=== PATIENT | male | born 1965 | race Two or more races ===

== ENCOUNTER 2018-10-25 11:16 | Emergency (ER) | payer OTHER ==
[2018-10-25] MEDS ORDERED: fentaNYL 100 MCG/2 ML INJ IVP ONE ×2 (11:30→12:08)
[2018-10-25] MEDS ORDERED: NS 1,000 ML IV ONE (11:30)
[2018-10-25] MEDS ORDERED: KETOROLAC 15 MG/1 ML SDV IVP ONE (11:32)
[2018-10-25] MEDS ORDERED: ONDANSETRON 4 MG/2 ML VIAL ONE (12:01)
[2018-10-25] MEDS ORDERED: ONDANSETRON 4 MG/2 ML VIAL IVP ONE (12:03)
--- NOTE | 2018-10-25 12:45 | EDPHY ---
H & P Time Seen by Provider: 10/25/18 11:23 HPI/ROS: CHIEF COMPLAINT: Abdominal pain HISTORY OF PRESENT ILLNESS: Patient states that approximately 1 hr prior to arrival he had a sudden onset of pain in the right lower quadrant of his abdomen. He states that the pain was intense and radiated to the groin. He had a little bit of nausea but no vomiting. He states that this is similar to pain he had 5 years ago when he was diagnosed with a kidney stone at an outside facility. He states he has had a little bit of discomfort with urination just since the pain started but denies any problems yesterday. He has had no fevers. He denies any trauma. Denies pain to scrotum. REVIEW OF SYSTEMS: Constitutional: No fever, no chills. Eyes: No discharge. ENT: No sore throat. Cardiovascular: No chest pain, no palpitations. Respiratory: No cough, no shortness of breath. Gastrointestinal: Per HPI Genitourinary: Per HPI Musculoskeletal: No back pain. Skin: No rashes. Neurological: No headache. General Appearance: Alert, moderate distress Eyes: Pupils equal and round no pallor or injection. ENT, Mouth: Mucous membranes moist. Respiratory: There are no retractions, lungs are clear to auscultation. Cardiovascular: Regular rate and rhythm. Gastrointestinal: Abdomen is soft and nontender, no masses, bowel sounds normal. Some right CVA tenderness. Neurological: Awake, alert, no focal deficits. Skin: Warm and dry, no rashes. Musculoskeletal: Neck is supple nontender. Extremities are symmetrical, full range of motion, no edema. Psychiatric: Patient is oriented X 3, there is no agitation. Medical/surgical history: Kidney stone, tonsillectomy Social history: Nonsmoker Smoking Status: Light smoker Constitutional: Initial Vital Signs Temperature (C) 36.6 C 10/25/18 11:22 Heart Rate 81 10/25/18 11:22 Respiratory Rate 16 10/25/18 11:22 Blood Pressure 131/83 H 10/25/18 11:22 O2 Sat (%) 100 10/25/18 11:22 O2 Delivery Mode Room Air Allergies/Adverse Reactions: No Known Allergies Allergy (Verified 10/25/18 11:22) Home Medications: Medication Instructions Recorded No Medications [NO HOME 1 ea [facility] [place] 12/14/11 MEDICATIONS] Hydrocodone/Acetaminophen [[place] 1 each PO Q6 PRN 2 Days #6 tablet 10/25/18 5-325 Tablet] Tamsulosin HCl [Flomax 0.4 MG (*)] 0.4 mg PO DAILY #2 cap 10/25/18 Medical Decision Making ED Course/Re-evaluation: 1:00 p.m. Re-evaluation after CT scan, patient states feeling much better pain essentially gone. Differential Diagnosis: Differential diagnosis includes but is not limited to renal stone, pyelonephritis, appendicitis, hernia, testicular torsion. After evaluation including CT scanning patient found have a 2 mm stone in the right UVJ with moderate hydro. Stones small and will advance and will likely pass without intervention. Discussed likely course with patient and his . Referred to urology if symptoms do not improve significantly over the next few days. Patient understands follow-up and return precautions. Stable for discharge. - Data Points Medications Given: Discontinued Medications Hydrocodone Bitart/Acetaminophen ([place] 5/325) 1 tab PO EDNOW ONE Stop: 10/25/18 13:33 Last Admin: 10/25/18 13:40 Dose: 1 tab Fentanyl (Sublimaze) 50 mcg IVP EDNOW ONE Stop: 10/25/18 11:31 Last Admin: 10/25/18 11:47 Dose: 50 mcg Fentanyl (Sublimaze) 50 mcg IVP EDNOW ONE Stop: 10/25/18 12:09 Last Admin: 10/25/18 12:09 Dose: 50 mcg Sodium Chloride (Ns) 1,000 mls @ 0 mls/hr IV EDNOW ONE; Wide Open PRN Reason: Protocol Stop: 10/25/18 11:31 Last Admin: 10/25/18 11:45 Dose: 1,000 mls Ketorolac Tromethamine (Toradol) 15 mg IVP EDNOW ONE Stop: 10/25/18 11:33 Last Admin: 10/25/18 11:46 Dose: 15 mg Ondansetron HCl (Zofran) 4 mg IVP EDNOW ONE Stop: 10/25/18 12:04 Last Admin: 10/25/18 12:08 Dose: 4 mg Tamsulosin HCl (Flomax) 0.4 mg PO EDNOW ONE Stop: 10/25/18 13:33 Last Admin: 10/25/18 13:41 Dose: 0.4 mg Point of Care Test Results: CBC CBC Collection Date 10/25/18 CBC Collection Time 11:42 WBC 10.8 RBC 5.28 HGB 16.6 HCT 47.1 PLT 247 Neut # 5.5 Neut 51.1 LYMPH # 4.7 LYMPH 43.1 Other WBC # 0.6 Other WBC 5.8 MCV 89.2 Chemistry 10/25/18 12:00 POC Sodium 142 mEq/L mEq/L (135-145) POC Potassium 4.5 mEq/L mEq/L (3.3-5.0) POC Chloride 105.0 mEq/L mEq/L (97-110) POC Total CO2 27 mEq/L mEq/L (22-31) POC BUN 15 mg/dL mg/dL (7-23) POC Creatinine 1.0 mg/dL mg/dL (0.7-1.3) POC Glucose 94 mg/dL mg/dL (70-100) POC Calcium 9.8 mg/dL mg/dL (8.5-10.4) Urine Dip Collection Date 10/25/18 Collection Time 13:40 Specific [place] (1.002-1.030) 1.020 PH (5.0-7.5) 7.0 Leukocytes (Negative) Negative Nitrites (Negative) Negative Protein (Negative) Negative Glucose (Negative) Negative Ketones (Negative) 1+ Urobilnogen (0.2-1.0 EU) 0.2 Bilirubin (Negative) Negative Blood (Negative) 2+ Departure - Departure Disposition: Home, Routine, Self-Care Clinical Impression: Renal colic on right side Condition: Fair Instructions: Hydrocodone/Acetaminophen (By mouth), Tamsulosin (By mouth), Kidney Stones (ED) Additional Instructions: Use pain medication as prescribed. Take the tamsulosin once a day for 2 more days. You had a dose in the emergency department today. If you're still having pain by Saturday call urologist and make an appointment for follow-up. Make sure you drink plenty of fluids. Referrals: LINDSAY ARNDT [Other] - As per Instructions Mag Ledesma MD [Medical Doctor] - As per Instructions Prescriptions: Hydrocodone/Acetaminophen [[place] 5-325 Tablet] 1 each PO Q6 PRN 2 Days #6 tablet PRN Reason: Pain, Breakthrough Tamsulosin HCl [Flomax 0.4 MG (*)] 0.4 mg PO DAILY #2 cap
[2018-10-25] MEDS ORDERED: TAMSULOSIN HCL 0.4 MG CAP PO ONE (13:32)
[2018-10-25] MEDS ORDERED: HYDROCODONE/APAP 5/325 TAB PO ONE (13:32)
[2018-10-25 14:48] VITALS: BP 138/82
== END 2018-10-25 14:46 | disposition home or self-care (01) ==
LOC: CED 11:16
DX: N23 Unspecified renal colic (principal); E86.9 Volume depletion, unspecified
CPT/HCPCS: 74176-PO; 80048-ER; 96361-ER; 96374-ER; 96375-ER; J1885; J2405; J3010

== ENCOUNTER 2018-12-31 15:29 | Observation (INO) | payer OTHER ==
[2018-12-31] MEDS ORDERED: ASPIRIN 81 MG CHEWABLE TAB PO ONE (15:47)
--- NOTE | 2018-12-31 15:55 | EDPHY ---
H & P Time Seen by Provider: 12/31/18 15:42 HPI/ROS: Chief complaint. Chest pain HPI. Patient is a 53-year-old male presents emergency department with chest discomfort that began at 1:30 a.m.. Was sharp and lasted 2 min. He took ibuprofen with some relief. It then has been present throughout the day today. It is central in his chest and he describes as burning as well as pressure. There is no radiation to neck back or arm. He notes slight shortness of breath with exertion. No increased discussed with exertion. Decreased pain with deep breathing. No fever cough. No similar symptoms previously. No history of diabetes or hypertension. No unusual leg pain or swelling ROS 10 systems were reviewed and negative with the exception of the elements mentioned in the history of present illness Past Medical/Surgical History: TB, kidney stones, tonsillectomy Family history grandfather had coronary artery disease Social History: , daily smoker, no alcohol Smoking Status: Light smoker Physical Exam: General Appearance: Alert pleasant well-developed male mild distress vital signs are stable Eyes: Pupils equal and round no pallor or injection. ENT, Mouth: Mucous membranes are moist. Respiratory: There are no retractions, lungs are clear to auscultation. Cardiovascular: Regular rate and rhythm. Gastrointestinal: Abdomen is soft and nontender, no masses, bowel sounds normal. Neurological: Awake and alert, sensory and motor exams grossly normal. Skin: Warm and dry, no rashes. Musculoskeletal: Neck is supple nontender. Extremities symmetrical, full range of motion. Psychiatric: Patient is oriented X 3, there is no agitation. Constitutional: Initial Vital Signs Temperature (C) 36.7 C 12/31/18 15:36 Heart Rate 68 12/31/18 15:36 Respiratory Rate 18 12/31/18 15:36 Blood Pressure 136/92 H 12/31/18 15:36 O2 Sat (%) 97 12/31/18 15:36 O2 Delivery Mode Room Air Allergies/Adverse Reactions: No Known Allergies Allergy (Verified 12/31/18 15:36) Home Medications: Medication Instructions Recorded No Medications [NO HOME 1 ea [facility] [place] MEDICATIONS] Medical Decision Making - Diagnostics EKG Interpretation: EKG interpreted by me shows normal sinus rhythm normal interval and axis. QRS is normal slight ST elevation lead 2 which appears to be J-point elevation. Otherwise no significant ST elevation or depression. No arrhythmia. The rate is 71. Repeat EKG 2 hr later interpreted by me shows normal sinus rhythm normal interval and axis. QRS is normal there is no significant ST elevation or depression though slight again ST elevation in V2 no arrhythmia. Rate 61 Imaging Results: Imaging Impressions Chest X-Ray 12/31/18 16:06 Impression: Mild peribronchial thickening which can be seen with airways disease /bronchitis. Procedures: IV normal saline, monitor. Aspirin in the ED Toradol IV GI cocktail ED Course/Re-evaluation: Re-evaluation 5:45 p.m. Patient's discomfort is unchanged and the same. It continues No improvement with GI cocktail or with IV Toradol Patient's arrives and says the patient has had this discomfort before and the cause is unclear. The patient has never had a cardiac workup. The patient , his , and I discussed imaging lab EKG findings. We discussed treatment plan including recommendation for admission for further cardiac evaluation. They expressed understanding and agreement.. We discussed transfer by ambulance but for financial reasons they would like to go by private vehicle. Risks and benefits of this are discussed with the patient and his . I consulted and discussed the case with Dr. Simpson, hospitalist, who agrees to the admission Differential Diagnosis: Patient's heart score-- History low suspicion--0 EKG nonspecific repolarization disturbance--1 Age--1 Risk factors--smoking--1 Troponin x2 is normal--0 Total is 3 I have considered acute coronary syndrome, pneumonia, GERD - Data Points Laboratory Results: 12/31/18 12/31/18 12/31/18 17:31 15:54 15:52 POC Sodium 144 mEq/L mEq/L (135-145) POC Potassium 3.7 mEq/L mEq/L (3.3-5.0) POC Chloride 106.0 mEq/L mEq/L (97-110) POC Total CO2 27 mEq/L mEq/L (22-31) POC BUN 11 mg/dL mg/dL (7-23) POC Creatinine 0.9 mg/dL mg/dL (0.7-1.3) POC Glucose 105 mg/dL H mg/dL (70-100) POC Calcium 9.3 mg/dL mg/dL (8.5-10.4) POC Total Bilirubin 0.7 mg/dL mg/dL (0.1-1.4) POC AST 21 IU/L IU/L (17-59) POC ALT 19 IU/L L IU/L (21-72) POC Alk Phosphatase 91 IU/L IU/L (38-126) POC Troponin I 0.00 ng/mL ng/mL 0.01 ng/mL ng/mL (0.00-0.08) (0.00-0.08) POC Total Protein 6.6 g/dL g/dL (6.3-8.2) POC Albumin 3.4 g/dL L g/dL (3.5-5.0) Medications Given: Discontinued Medications Al Hydroxide/Mg Hydroxide (Maalox Susp) 30 ml PO ONCE ONE Stop: 12/31/18 17:47 Last Admin: 12/31/18 17:52 Dose: 30 ml Aspirin (Aspirin) 324 mg PO EDNOW ONE Stop: 12/31/18 15:48 Last Admin: 12/31/18 15:50 Dose: 324 mg Ketorolac Tromethamine (Toradol) 30 mg IVP EDNOW ONE Stop: 12/31/18 17:13 Last Admin: 12/31/18 17:16 Dose: 30 mg Lidocaine (Lidocaine 2% Viscous) 15 ml PO ONCE ONE Stop: 12/31/18 17:47 Last Admin: 12/31/18 17:52 Dose: 15 ml Point of Care Test Results: CBC CBC Collection Date 12/31/18 CBC Collection Time 15:45 WBC 7.21 RBC 5.24 HGB 16.1 HCT 46.5 PLT 239 Neut # 3.95 Neut 54.7 LYMPH # 2.6 LYMPH 36.1 MCV 88.7 Chemistry 12/31/18 12/31/18 12/31/18 17:31 15:54 15:52 POC Sodium 144 mEq/L mEq/L (135-145) POC Potassium 3.7 mEq/L mEq/L (3.3-5.0) POC Chloride 106.0 mEq/L mEq/L (97-110) POC Total CO2 27 mEq/L mEq/L (22-31) POC BUN 11 mg/dL mg/dL (7-23) POC Creatinine 0.9 mg/dL mg/dL (0.7-1.3) POC Glucose 105 mg/dL H mg/dL (70-100) POC Calcium 9.3 mg/dL mg/dL (8.5-10.4) POC Total Bilirubin 0.7 mg/dL mg/dL (0.1-1.4) POC AST 21 IU/L IU/L (17-59) POC ALT 19 IU/L L IU/L (21-72) POC Alk Phosphatase 91 IU/L IU/L (38-126) POC Troponin I 0.00 ng/mL ng/mL 0.01 ng/mL ng/mL (0.00-0.08) (0.00-0.08) POC Total Protein 6.6 g/dL g/dL (6.3-8.2) POC Albumin 3.4 g/dL L g/dL (3.5-5.0) D-Dimer D-Dimer Collection Date 12/31/18 D-Dimer Collection Time 15:45 D-Dimer (ng/ml) <100 Departure - Departure Disposition: [facility] Inpatient Acute Clinical Impression: Chest pain Qualifiers: Chest pain type: unspecified Qualified Code(s): R07.9 - Chest pain, unspecified Condition: Fair
[2018-12-31] MEDS ORDERED: KETOROLAC 30 MG/1 ML SDV IVP ONE (17:12)
[2018-12-31] MEDS ORDERED: MAG HYDROX/AL HYDROX/SIMETH 30 ML UDCUP PO ONE (17:46)
[2018-12-31] MEDS ORDERED: LIDOCAINE 2% VISCOUS 15 ML UDCUP PO ONE (17:46)
--- NOTE | 2018-12-31 18:26 | CPEKG ---
Test Reason : OPEN Blood Pressure : / mmHG Vent. Rate : 061 BPM Atrial Rate : 062 BPM P-R Int : 148 ms QRS Dur : 080 ms QT Int : 401 ms P-R-T Axes : 064 074 059 degrees QTc Int : 404 ms Sinus rhythm Abnormal R-wave progression, early transition ST elevation, consider anterior injury Confirmed by Stefan Mercedes ([id number]) on 12/31/2018 6:25:46 PM Referred By: STEFAN MERCEDES Confirmed By:Stefan Mercedes
--- NOTE | 2018-12-31 18:26 | CPEKG ---
Test Reason : OPEN Blood Pressure : / mmHG Vent. Rate : 071 BPM Atrial Rate : 071 BPM P-R Int : 137 ms QRS Dur : 081 ms QT Int : 381 ms P-R-T Axes : 078 079 061 degrees QTc Int : 414 ms Sinus rhythm Abnormal R-wave progression, early transition Minimal ST elevation, anterior leads Confirmed by Adair Mercedes ([id number]) on 12/31/2018 6:26:02 PM Referred By: PHYSICIAN ED Confirmed By:Adair Mercedes
--- NOTE | 2018-12-31 22:03 | PDGENHP ---
History and Physical - Chief Complaint chest pain - History of Present Illness Patient is a 53-year-old male with no past medical history presented to the emergency room with complaints of chest pain. Onset of pain was at 1:00 a.m. In the morning. Patient says he got up, had a drink of water and then after that developed some midsternal chest pain. Pain was a sharp pain located in his mid sternum, nonradiating. Nothing seemed to make it better or worse. His noticed that it did seem to be associated with a mild cough. Pain persisted into today and that is why in ultimately presented the emergency room. Pain has diminished substantially at this point. He denied any nausea vomiting sweatiness shortness of breath or other symptoms. History Information - Allergies/Home Medication List Allergies/Adverse Reactions: No Known Allergies Allergy (Verified 12/31/18 15:36) Home Medications: Ibuprofen [Motrin (*)] 800 mg PO DAILY PRN 12/31/18 [Last Taken 12/31/18 01:30] I have personally reviewed and updated: family history, medical history, social history, surgical history - Past Medical History no pertinent PMH Additional medical history: kidney stones - Surgical History Reports: no pertinent surgical hx - Family History Positive for: non-pertinent Additional family history: Said his dad had a big heart - Social History Smoking Status: Light smoker Tobacco Use: Cigarettes Alcohol Use: Occasionally Review of Systems Review of Systems: ROS: 10pt was reviewed & negative except for what was stated in HPI & below Physical Exam Physical Exam: Temp Pulse Resp BP Pulse Ox 36.4 C 73 17 128/75 H 96 12/31/18 21:19 12/31/18 21:19 12/31/18 21:19 12/31/18 21:19 12/31/18 21:19 Constitutional: no apparent distress, appears nourished, not in pain Eyes: PERRL, anicteric sclera, EOMI Ears, Nose, Mouth, Throat: moist mucous membranes, hearing normal, ears appear normal, no oral mucosal ulcers Cardiovascular: regular rate and rhythym, no murmur, rub, or gallop, No edema Respiratory: no respiratory distress, no rales or rhonchi, clear to auscultation Gastrointestinal: normoactive bowel sounds, soft, non-tender abdomen, no palpable masses Genitourinary: no bladder fullness, no bladder tenderness Skin: warm, normal color, no rashes or abrasions, no fluctuance, no induration, No mottled Musculoskeletal: full muscle strength, no muscle tenderness, normal joint ROM, no joint effusions Psychiatric: interacting appropriately, not anxious, not encephalopathic, thought process linear Lymph, Heme, Immunologic: no cervical LAD, no supraclavicular LAD Lab Data & Imaging Review POC Sodium 144 mEq/L (135-145) 12/31/18 15:54 POC Potassium 3.7 mEq/L (3.3-5.0) 12/31/18 15:54 POC Chloride 106.0 mEq/L (97-110) 12/31/18 15:54 POC Total CO2 27 mEq/L (22-31) 12/31/18 15:54 POC BUN 11 mg/dL (7-23) 12/31/18 15:54 POC Creatinine 0.9 mg/dL (0.7-1.3) 12/31/18 15:54 POC Glucose 105 mg/dL (70-100) H 12/31/18 15:54 POC Calcium 9.3 mg/dL (8.5-10.4) 12/31/18 15:54 POC Total Bilirubin 0.7 mg/dL (0.1-1.4) 12/31/18 15:54 POC AST 21 IU/L (17-59) 12/31/18 15:54 POC ALT 19 IU/L (21-72) L 12/31/18 15:54 POC Alk Phosphatase 91 IU/L (38-126) 12/31/18 15:54 POC Troponin I 0.00 ng/mL (0.00-0.08) 12/31/18 17:31 POC Total Protein 6.6 g/dL (6.3-8.2) 12/31/18 15:54 POC Albumin 3.4 g/dL (3.5-5.0) L 12/31/18 15:54 Assessment & Plan Assessment: 53-year-old male with no past medical history admitted with chest pain Chest pain (Acute)- his heart score is 3 for age, smoking and EKG abnormalities. Chest pain seems to have resolved. EKG with what appears to be J-point elevation in V2. Initial troponin negative. -cycle troponin -he has already been given a full-dose aspirin -lipid panel -stress test in the morning assuming negative troponins -chest x-ray with possible bronchitis Tobacco abuse- counseled on cessation. Prophylaxis- SCDs and Lovenox Fluids- saline Electrolytes- within normal limits Nutrition- cardiac diet Cor- full Dispo- observation for chest pain rule out
[2018-12-31] MEDS ORDERED: ACETAMINOPHEN 325 MG TAB PO PRN (22:19)
[2018-12-31] MEDS ORDERED: ONDANSETRON DISINTEGRATING 4 MG TAB PO PRN (22:19)
[2018-12-31] MEDS ORDERED: ONDANSETRON 4 MG/2 ML VIAL IVP PRN (22:19)
[2018-12-31] MEDS ORDERED: NS 1,000 ML IV SCH (22:30)
[2019-01-01 05:43] LABS: PLATELET COUNT 218 10^3/uL (150-400)
[2019-01-01 05:54] LABS: INR 1.08 (0.83-1.16); PROTIME(PATIENT) 13.6 SEC (12.0-15.0)
[2019-01-01] MEDS ORDERED: PNEUMOCOCCAL 0.5ML VACCINE VIAL (PNEUMOVAX 23) IM ONE (08:53)
[2019-01-01] MEDS ORDERED: ENOXAPARIN 40 MG/0.4 ML SYR SC SCH (09:00)
[2019-01-01 11:18] VITALS: BP 119/74
--- NOTE | 2019-01-01 11:36 | CPR ---
[f rep st] NONINVASIVE CARDIAC PROCEDURE REPORT REPORT TITLE: Treadmill stress test REASON FOR TEST: 1. Chest discomfort. 2. History of gastroesophageal reflux disease. Resting EKG shows a regular sinus rhythm with a ventricular rate of 65, T-wave inversion in aVL. No ectopy noted. Blood pressure 114/67, oxygen saturation 97 %, heart rate 65.He is asymptomatic. TREADMILL PORTION: He exercised according to the Jermaine protocol for a total of 9 minutes. He did reach his maximal heart rate with no ectopy or symptoms. Blood pressure peaked at 164/74, peak heart rate 153, peak MET level 10.2. He remained asymptomatic throughout the test. RECOVERY: He spontaneously recovered. His heart rate and blood pressure returned to baseline. This is a normal treadmill stress test. Supervising physician: Colin Resendiz. /[id number]/MODL MTDD
[2019-01-01] MEDS ORDERED: ALBUTEROL 60 PUFFS/8 GM MDI IH SCH ×2 (12:00→14:00)
--- NOTE | 2019-01-01 12:32 | CPEKG ---
Test Reason : OPEN Blood Pressure : / mmHG Vent. Rate : 062 BPM Atrial Rate : 061 BPM P-R Int : 148 ms QRS Dur : 080 ms QT Int : 398 ms P-R-T Axes : 070 077 057 degrees QTc Int : 405 ms Sinus rhythm Borderline ST elevation, anterior leads Confirmed by Giovany Pak ([id number]) on 01/01/2019 12:32:35 PM Referred By: David Brown Confirmed By:Giovany Pak
--- NOTE | 2019-01-01 14:05 | ECHO ---
[email or web address] [address] [address] Main: [phone] Echocardiography Examination Transthoracic Name: DUNIA WHITE MR#: [id number] Study Date: 01/01/2019 Study Time: 11:39 AM Date of : 1965 Age: 53 year(s) Height: 162.6 cm (64 in.) Weight: 58.06 kg (128 lb.) BSA: 1.62 m2 Gender: Male Examination: Echo Contrast: Image Quality: Adequate Rhythm: Heart Rate: BP: 119 mmHg/74 mmHg Indication: Chest Pain Procedure Staff Referring Physician: Email Campaign Manager: Virginia Brody [facility] Reading Physician: Colin Resendiz MD Requesting Provider: Ordering Physician: Bean Carter Indication: Chest Pain Acute complication: None Measurements Chambers AV/MV Label Value Normal Value Label Value Normal Value LVOTd 1.8 cm (1.9cm - 2.1cm) AV PGmax 7 mmHg LVDd, 2D 4.1 cm (4.2cm - 5.9cm) AV PGmean 4 mmHg LVDs, 2D 2.9 cm (2.1cm - 4cm) AV Vmax 1.35 m/s IVSd, 2D 0.7 cm (0.6cm - 1.1cm) CLARA (VTI) 1.4 cm2 LVPWd, 2D 0.8 cm (0.6cm - 1cm) MV E Vmax 0.81 m/s LVEF, BP 61 % (55% - 70%) MV A Vmax 0.62 m/s LVEF, 2D 56 % (54% - 74%) MV E/A 1.31 LVOT PGmean 2 mmHg MV E/E' lateral 7.3 LVOT Vmean 0.59 m/s MV E/E' septal 7.8 (0.5 - 1.7) LA Volume, BP 21 ml (18ml - 58ml) MV DT 197 ms LADs, 2D 2.5 cm (3cm - 4cm) MV E' septal 0.1 m/s LAESV index, BP 13 ml/m2 MV PHT 0.06 s RA Area 10.1 cm2 MVA PHT 3.8 cm2 Additional Vessels MV E' lateral 0.11 m/s Label Value Normal Value MV E/E' mean 7.71 AoAsc 2.8 cm MV PHT 58 ms AoRoot, 2D 2.8 cm (1.4cm - 2.6cm) MV E' mean 0.1 m/s IVC 1.5 cm (1.2cm - 2.3cm) TV/PV Patient: DUNIA WHITE Study Date: 01/01/2019 Page 1 of 3 11:39 AM Label Value Normal Value RA Pressure 5 mmHg PV PGmax 2 mmHg PV Vmax, Caliper 0.71 m/s (0.6m/s - 0.9m/s) Conclusions (1) Left ventricular systolic ejection fraction was normal (60-65%) - normal wall motion - no LVH (2) Normal RV size and function (3) Normal atrial dimensions (4) Mild MR (5) Trileaflet aortic valve without sclerosis or insufficiency (6) Trivial TR (7) Grossly normal pulmonic valve (8) No pericardial effusion Findings Left Ventricle: Left ventricle is normal in size. Normal global systolic left ventricular function. The ejection fraction, measured by Simpsons method, is 61 %. Left ventricle wall thickness is normal. There are no regional wall motion abnormalities. Left ventricular diastolic function parameters are normal. No LV hypertrophy. Right Ventricle: Normal size right ventricle. Right ventricular systolic function is normal. Left Atrium: The left atrium is normal in size. Right Atrium: The right atrium is normal in size. Mitral Valve: Mitral valve appears structurally normal. Mild mitral regurgitation. No mitral valve stenosis. Aortic Valve: Aortic leaflets are structurally normal. No significant aortic valve regurgitation. There is no aortic stenosis. Tricuspid Valve: Tricuspid valve leaflets are structurally normal. Trivial tricuspid regurgitation. No tricuspid valve stenosis. Pulmonary artery pressure cannot be assessed due to inadequate TR signal. Pulmonic Valve: Pulmonic leaflets are structurally normal. No significant pulmonic valve regurgitation is evident. Aorta: The aortic root size in 2D measures 2.8 cm. The ascending aorta measures 2.8 cm. Aorta Measurements AoRoot, 2D is 2.8 cm. IVC: The inferior vena cava is normal in size. Pericardium: No pericardial effusion. Exam Details Procedure Ordered: Echo Procedure Status: Routine study Image Quality: Adequate Consent: Risks, alternatives of procedure explained to patient, informed consent obtained Probe Insertion: Attending parts picker Patient: DUNIA WHITE Study Date: 01/01/2019 Page 2 of 3 11:39 AM Facility Location: Cardiac Echo 1 (No Signature Object) Patient: DUNIA WHITE Study Date: 01/01/2019 Page 3 of 3 11:39 AM [id number]
--- NOTE | 2019-01-01 14:41 | ASMTCMCOM ---
CM Note CM Note Notes: 01/01/2019 Case Management Note Discussed pt during rounds this morning. Pt present at bedside. [place] [phone]. Pt admitted for chest pain. Stress test and ECHO today. There are no therapy evals ordered at this time. Case Management d/c poc: independent with follow up as directed. Case Management available if needs change. Date Signed: 01/01/2019 02:40 PM Electronically Signed By:Iesha Obrien RN
--- NOTE | 2019-01-01 14:45 | PDDCSUM ---
Discharge Summary Discharge Summary: 53 yo male admitted for chest pain. HEART score was 3. Work up is negative including negative echocardiogram, stress treadmill, troponin, telemetry. He is tobacco smoker. Etiology of his cp is likely mild bronchitis and he was given an albuterol inhaler for this. F/U: with pcp next week DDx: -chest pain -bronchitis Exam: NAD AAOX3 RRR DECREASE LUNG SOUNDS S/NT/ND MEDS: SEE MED REC TOTAL TIME SPENT ON D/C IS 35 MINS
--- NOTE | 2019-01-01 15:26 | ASDISCHSUM ---
Discharge Information Plan Status:Home with No Needs Medically Cleared to Leave:01/01/2019 Discharge Date:01/01/2019 CM D/C Disposition:Home, Routine, Self-Care ADT D/C Disposition:Home, Routine, Self-Care Projected Discharge Date:01/01/2019 Transportation at D/C: Discharge Delay Reason: Follow-Up Date:01/01/2019 Discharge Slot: Final Diagnosis: Placement Information Patient Contact Information Contact Name:FILIBERTO Relationship: Address:[address] Work Phone: City:[place] Alternate Phone: State/Zip Code:[place] [address] Email: Financial Information Financial Class:HMO and PPO Plans Primary Plan Desc:[facility] Primary Plan Number:[id number] Secondary Plan Desc: Secondary Plan Number: Assessment Information LACE LACE Length of stay for Answers: Less than 1 day current admission Acuity / Level of Answers: No Care: Did the patient have an inpatient admission? # of Emergency department Answers: 1-2 visits in the last 6 months Score: 1 Date Signed: 01/01/2019 03:25 PM Electronically Signed By:Iesha Obrien RN [facility] Progress Note CM Note CM Note Notes: 01/01/2019 Case Management Note Discussed pt during rounds this morning. Pt present at bedside. [place] [phone]. Pt admitted for chest pain. Stress test and ECHO today. There are no therapy evals ordered at this time. Case Management d/c poc: independent with follow up as directed. Case Management available if needs change. Date Signed: 01/01/2019 02:40 PM Electronically Signed By:Iesha Obrien RN Intervention Information Intervention Type:*Incorrect Registration Date of Service:01/01/2019 10:14 AM Patient Type:Inpatient Staff Member:Julia Clancy Hours: Discipline: Severity: Comment:
== END 2019-01-01 16:23 | disposition home or self-care (01) ==
LOC: CED 15:29 → INTOOBSV 18:58 → F2W 21:14
PROVIDERS: ADMIT Internal Medicine; ATTEND Internal Medicine
DX: R07.9 Chest pain, unspecified (principal); K21.9 Gastro-esophageal reflux disease without esophagitis; F17.200 Nicotine dependence, unspecified, uncomplicated; Z23 Encounter for immunization
CPT/HCPCS: 71046; 90471; 93005; 93017; 93306; 96372; 96374; 99285; G0378; 80053-ER; 84484-ER; 85025-QW-ER; 85379-QW-ER; G0009; G0009-ER; J1650; J1885